=== PATIENT | male | born 1970 | race African-American/Black ===

== ENCOUNTER 2017-10-04 02:24 | Emergency (ER) | payer OTHER ==
[~2017-10-04] VITALS: Ht 182.9 cm; Wt 106.6 kg
--- NOTE | 2017-10-04 02:31 | Emergency Room Report ---
History of Present Illness General Chief Complaint: General Complaint Source: Patient, EMS Present Illness HPI Is a 47-year-old male with a history of insulin dependent diabetes, on insulin pump. He is running across [place] on his motorcycle. He said that his last couple of cartridges his insulin pump was cloudy. He thinks that the heat from the doesn't cause this. He said his sugars been running high in the 600 today. He been taking boluses of his friend's insulin and it seemed to be coming down. Reason he call 911 was at 11 PM, he got up and has severe cramps to the point of passing out. His sugar was high so he gave himself another bolus of 25 units of Humalin. Denies any trauma. No fever chills. no nausea no vomiting. No chest pain. No dysuria frequency. Allergies: Coded Allergies: LISINOPRIL (Verified Allergy, Unknown, 10/04/17) Patient History Past Medical History: see triage record, old chart reviewed, DM Past Surgical History: other Pertinent Family History: none Social History: Denies: smoking Immunizations: other Reviewed Nursing Documentation: PMH: Agreed; PSxH: Agreed Nursing Documentation-PMH Hx Hypertension: Yes Hx Diabetes: Yes Review of Systems Eye: Denies: eye pain, blurred vision ENT: Denies: ear pain, nose congestion, throat swelling Respiratory: Denies: cough, shortness of breath Cardiovascular: Denies: chest pain, palpitations Gastrointestinal: Denies: abdominal pain, diarrhea, nausea, vomiting Musculoskeletal: Denies: back pain, joint pain Skin: Denies: rash Neurological: Denies: headache, numbness Endocrine: Denies: increased thirst, increased urine Hematologic/Lymphatic: Denies: easy bruising All Other Systems: negative except mentioned in HPI Physical Exam Vital Signs Date Time Temp Pulse Resp B/P (MAP) Pulse Ox O2 Delivery O2 Flow Rate FiO2 10/04/17 02:11 98.1 72 18 147/87 99 Room Air 98.1 vitals unremarkable Sp02 EP Interpretation: reviewed, normal General Appearance: well appearing, no apparent distress, alert Head: normocephalic, atraumatic Eyes: bilateral eye PERRL, bilateral eye EOMI ENT: hearing grossly normal, normal pharynx Neck: full range of motion, supple, no meningismus Respiratory: chest non-tender, lungs clear, normal breath sounds Cardiovascular #1: regular rate, rhythm, no murmur Gastrointestinal: normal bowel sounds, non tender, no mass, no organomegaly, no bruit, non-distended Musculoskeletal: back normal, gait/station normal, normal range of motion Psychiatric: mood/affect normal Skin: warm/dry Medical Decision Making Diagnostic Impression: Primary Impression: Hyperglycemia due to type 1 diabetes mellitus Additional Impressions: Hypokalemia Hypocalcemia ER Course Patient with hyperglycemia. This may be secondary to his insulin being degraded from the heat the deficit. He also been drinking a lot of water. His insulin boluses and dehydration may made his potassium low. This can cause severe cramping. He felt better now. We'll discharge after potassium been repleted. Last Vital Signs Date Time Temp Pulse Resp B/P (MAP) Pulse Ox O2 Delivery O2 Flow Rate FiO2 10/04/17 02:11 98.1 72 18 147/87 99 Room Air 98.1 Status: improved Disposition: HOME, SELF-CARE Condition: Stable Scripts Nph, Human Insulin Isophane (HUMULIN N) 100 Unit/1 Ml Vial 1 UNIT IVINF PRN, #1 VIAL Prov: KELLI ROGERS M.D. 10/04/17 Potassium Chloride* (K-DUR*) 20 Meq Tab.er.prt 20 MEQ ORAL DAILY, #7 TAB 0 Refills Prov: KELLI ROGERS M.D. 10/04/17 Additional Instructions: Use your insulin as scheduled. Follow-up your doctor within a week for recheck. Return if symptom worsen. KELLI ROGERS M.D. Oct 04, 2017 02:31
[2017-10-04 03:01] LABS: ANION GAP 9 mmol/L (5-15); BLOOD UREA NITROGEN 24 mg/dL (7-18); CARBON DIOXIDE 18 MMOL/L (21-32); CHLORIDE 113 MMOL/L (98-107); CREATININE 1.3 MG/DL (0.55-1.30); SODIUM 140 MMOL/L (136-145)
[2017-10-04 03:05] LABS: APPEARANCE,URINE CLEAR; BILIRUBIN, URINE NEGATIVE (NEGATIVE); COLOR,URINE PALE YELLOW; GLUCOSE, URINE (UA) 4+ (NEGATIVE); KETONES,URINE NEGATIVE (NEGATIVE); LEUKOCYTE ESTERASE ,URINE NEGATIVE (NEGATIVE); NITRITE,URINE NEGATIVE (NEGATIVE); PH,URINE 5 (4.5-8.0); PROTEIN,URINE 3+ (NEGATIVE); UROBILINOGEN,URINE NORMAL MG/DL (0.0-1.0)
[2017-10-04 03:08] LABS: CALCIUM 5.2 MG/DL (8.5-10.1)
[2017-10-04 03:11] LABS: BASOPHILS % (AUTO) 0.6 % (0.0-2.0); EOSINOPHILS % (AUTO) 0.6 % (0.0-3.0); HEMATOCRIT 26.4 % (42.0-52.0); HEMOGLOBIN 9.2 G/DL (14.2-18.0); LYMPHOCYTES % (AUTO) 17.9 % (20.0-45.0); MEAN CORPUSCULAR VOLUME 85 FL (80-99); MONOCYTES % (AUTO) 8.6 % (1.0-10.0); NEUTROPHILS % (AUTO) 72.3 % (45.0-75.0); PLATELET COUNT 188 K/UL (150-450); RED BLOOD COUNT 3.11 M/UL (4.70-6.10); RED CELL DISTRIBUTION WIDTH 10.3 % (11.6-14.8)
[2017-10-04] MEDS ORDERED: HUMULIN N100 UNIT/1 IVINF (03:59)
[2017-10-04] MEDS ORDERED: POTASSIUM CHLO20 ME1 ORAL (03:59)
[2017-10-04 04:32] VITALS: BP 155/89
[2017-10-04 04:52] VITALS: BP 155/89
== END 2017-10-04 04:52 | disposition home or self-care (01) ==
LOC: EDBD 02:24 → EMR 02:54
DX: E10.65 Type 1 diabetes mellitus with hyperglycemia (principal); E87.6 Hypokalemia; E83.51 Hypocalcemia; Z88.8 Allergy status to other drugs, medicaments and biological substances; I10 Essential (primary) hypertension
CPT/HCPCS: 36415; 80048; 81001; 82962; 85025; 96360; 96365; 99284; J3480; J8499